=== PATIENT | male | born 1980 | race Two or more races ===

== ENCOUNTER 2019-03-26 21:01 | Emergency (ER) | payer BC ==
[~2019-03-26] VITALS: Ht 180.3 cm; Wt 77.1 kg
[2019-03-26 21:17] VITALS: BP 160/108
--- NOTE | 2019-03-26 21:25 | NUR ---
BIBSEDENISE C/O R SIDE MOUTH PAIN. PT STATES HE'S HAD DENTAL ABSCESS X1 YEAR AND "IT POPPED TODAY AROUND 5PM, THERE WAS A LOT OF BLOOD"
== END 2019-03-26 22:30 | disposition home or self-care (01) ==
LOC: ER 21:04
DX: K04.7 Periapical abscess without sinus (principal); F17.200 Nicotine dependence, unspecified, uncomplicated